=== PATIENT | male | born 1995 | race Caucasian/White ===

== ENCOUNTER 2019-11-27 16:48 | Emergency (ER) | payer OTHER ==
[2019-11-27] MEDS ORDERED: Morphine 4 MG/ML VIAL ONE (18:36)
[2019-11-27] MEDS ORDERED: Ondansetron PF 4 MG/2 ML Vial ONE ×2 (18:36→19:57)
[2019-11-27 18:51] LABS: #Basophils 0.1 thou/uL (0.0-0.2); #Eosinphils 0.1 thou/uL (0.0-0.7); #Lymphocytes 1.7 thou/uL (1.20-3.40); #Monocytes 0.5 thou/uL (0.11-0.59); %Basophils 1.3 % (0.0-1.0); %Eosinophils 1.2 % (0.0-10.0); %Lymphocytes 31.9 % (21.0-51.0); %Monocytes 8.6 % (0.0-10.0); %Neutrophils 57.1 % (42.0-75.0); Hemoglobin 16.1 g/dL (14.0-18.0); Mean Corpuscular Hemoglobin 34.5 pg (27.0-31.0); Mean Corpuscular Volume 96.1 fL (78.0-98.0); Mean Platelet Volume 7.2 fL (7.4-10.4); Platelet Count 215 thou/uL (130-400); RBC Distribution Width 11.6 % (11.5-14.5); Red Blood Cell (RBC) Count 4.65 mill/uL (4.70-6.10); White Blood Cell (WBC) Count 5.3 thou/uL (4.8-10.8)
[2019-11-27 19:06] LABS: ALT (SGPT) 19 U/L (8-55); AST (SGOT) 24 U/L (5-34); Alkaline Phosphatase 60 U/L (40-110); Anion Gap 15 mmol/L (10-20); BUN (Urea Nitrogen) 6 mg/dL (8.9-20.6); Calc. Creatinine Clearance 0 mL/min (70-130); Calcium 9.5 mg/dL (7.8-10.44); Carbon Dioxide 26 mmol/L (22-29); Chloride 100 mmol/L (98-107); Estimated GFR-MDRD Greater than 90; Globulin 2.6 g/dL (2.4-3.5); Glucose 91 mg/dL (70-105); Lipase 14 U/L (8-78); Potassium 3.8 mmol/L (3.5-5.1); Protein, Total 7.6 g/dL (6.0-8.3); Sodium 137 mmol/L (136-145)
[2019-11-27] MEDS ORDERED: methylPREDNISolone Sod Succ/PF 125 MG/2 ML VIAL ONE (19:57)
== END 2019-11-27 20:24 | disposition home or self-care (01) ==
LOC: ERS 16:48 → EDBD 16:48 → ERS 20:24
DX: K50.90 Crohn's disease, unspecified, without complications (principal); G47.00 Insomnia, unspecified; F32.9 Major depressive disorder, single episode, unspecified
CPT/HCPCS: 36415; 80053; 83690; 85025; 96374; 96375; J2270; J2405; J2930

== ENCOUNTER 2020-06-12 17:44 | Inpatient (IN) | payer OTHER ==
[~2020-06-12 17:44] MED LIST: Rocuronium Bromide 10 MG/ML (10ML VIAL) ONE
[2020-06-12] MEDS ORDERED: Fentanyl 100 MCG/2 ML VIAL ONE ×2 (17:52→18:43)
[2020-06-12] MEDS ORDERED: Boostrix 0.5 ML (Tdap) VIAL IM ONE (17:52)
[2020-06-12 18:00] LABS: Hemoglobin 15.2 g/dL (14.0-18.0); Mean Corpuscular HGB CONC 34.1 g/dL (32.0-36.0); Mean Corpuscular Hemoglobin 32.4 pg (27.0-31.0); Mean Corpuscular Volume 94.8 fL (78.0-98.0); Mean Platelet Volume 6.4 fL (7.4-10.4); Platelet Count 242 thou/uL (130-400); RBC Distribution Width 12.5 % (11.5-14.5); Red Blood Cell (RBC) Count 4.71 mill/uL (4.70-6.10); White Blood Cell (WBC) Count 5.5 thou/uL (4.8-10.8)
[2020-06-12 18:08] LABS: PTT 23.7 sec (22.9-36.1); Prothrombin Time 13.2 sec (12.0-14.7)
[2020-06-12 18:14] LABS: Lactic Acid 2.1 mmol/L (0.5-2.2)
[2020-06-12] MEDS ORDERED: Dextrose 50% Abboject 50 ML SYRINGE SLOW IVP PRN (18:14)
[2020-06-12] MEDS ORDERED: hydrALAZINE 20 MG/ML VIAL SLOW IVP PRN (18:14)
[2020-06-12] MEDS ORDERED: Dextrose 5% in Water 1,000 ML IV PRN (18:14)
[2020-06-12] MEDS ORDERED: fentaNYL Citrate/PF 2,000 MCG in Sodium Chloride 0.9% 60 ML IV PRN (18:17)
[2020-06-12 18:19] LABS: ALT (SGPT) 23 U/L (8-55); AST (SGOT) 32 U/L (5-34); Albumin 4.2 g/dL (3.5-5.0); Alkaline Phosphatase 73 U/L (40-110); Anion Gap 16 mmol/L (10-20); BUN (Urea Nitrogen) 8 mg/dL (8.9-20.6); Bilirubin, Total 0.3 mg/dL (0.2-1.2); Calc. Creatinine Clearance 0 mL/min (70-130); Calcium 8.1 mg/dL (7.8-10.44); Carbon Dioxide 24 mmol/L (22-29); Chloride 105 mmol/L (98-107); Globulin 2.7 g/dL (2.4-3.5); Glucose 127 mg/dL (70-105); Potassium 3.7 mmol/L (3.5-5.1); Protein, Total 6.9 g/dL (6.0-8.3); Sodium 141 mmol/L (136-145)
[2020-06-12 18:22] LABS: Band 2 % (5-11); Eosinophils 3 % (0-10); Lymphocytes 25 % (21-51); MDiff Complete? YES; Monocytes 6 % (0-10); Neutrophil 33 % (42-75); Platelet Morphology Comment Appears Adequate; RBC Morphology Normal; Reactive Lymphocytes 31 % (0-10)
[2020-06-12 18:27] LABS: Actual Bicarbonate (HCO3a) 21.7 mEq/L (22-28); Analyzer IN Cardio ER; Base Excess (BEa) -1.6 mEq/L (-2.0 to +3.0); CO2 Tension 32.7 mmHg (35.0-45.0); Calcium, Ionized (arterial) 1.07 mmol/L (1.12-1.30); Carboxyhemoglobin (COHb) 0.3 gm% (0.0-3.0); Hemoglobin (Hb) 14.6 g/dL (14.0-18.0); Potassium - ABG Lab 3.56 mmol/L (3.70-5.30); pH, Arterial 7.44 (7.35-7.45)
[2020-06-12 18:36] LABS: ALV-art Gradient 11.625 mmHg (0-20); Puncture Site RRA
[2020-06-12] MEDS ORDERED: Propofol 1,000 MG/100 ML VIAL IV ONE ×2 (18:52→22:56)
[2020-06-12 19:02] LABS: Magnesium 2.3 mg/dL (1.6-2.6); Phosphorus 2.4 mg/dL (2.3-4.7)
[2020-06-12] MEDS ORDERED: Midazolam HCl 5 mg/ml Vial ONE (19:03)
[2020-06-12 19:43] LABS: Bilirubin Negative (Negative); Blood, Urine Negative (Negative); Clarity Turbid (Clear); Glucose, Urine (Dipstick) Normal (Negative); Ketone, Urine Negative (Negative); Leukocyte Negative Leu/uL (Negative); Nitrite Negative (Negative); Protein, Urine (Dipstick) 10 mg/dL (Neg-Trace); Specific Gravity, Urine 1.017 (1.002-1.036); Urobilinogen Normal mg/dL (Less than 2); pH, Urine 7.5 (5.0-9.0)
[2020-06-12] MEDS ORDERED: Hydrocortisone 1% Cream 30 GM TUBE ONE (19:46)
[2020-06-12] MEDS ORDERED: Lidocaine 1% w/Epinephrine 1:100K 20 ML VIAL ONE (19:46)
[2020-06-12] MEDS ORDERED: Chlorhexidine Gluconate 15 ML UDCUP SSP ONE (19:46)
[2020-06-12 19:58] LABS: Amphetamine Not Detected (NotDetected); Barbiturates Screen Not Detected (NotDetected); Benzodiazepine Screen Not Detected (NotDetected); Cocaine Metabolite Screen Not Detected (NotDetected); Medtox Control Line Valid? VALID (VALID); Medtox Reader # READER 4; Methadone Not Detected (NotDetected); Methamphetamine Not Detected (NotDetected); Opiate Screen Not Detected (NotDetected); Oxycodone Screen Not Detected (NotDetected); Phencyclidine (PCP) Not Detected (NotDetected); THC/Cannabinoid Screen Detected (NotDetected); Tricyclic Screen Not Detected (NotDetected)
[2020-06-12] MEDS ORDERED: Rocuronium Bromide 10 MG/ML (10ML VIAL) ONE (20:05)
[2020-06-12] MEDS ORDERED: Vecuronium 10 MG VIAL ONE ×2 (20:05)
[2020-06-12] MEDS ORDERED: Dexamethasone 20 MG/5 ML VIAL ONE (20:05)
[2020-06-12] MEDS ORDERED: PHENYLEPHRINE-NS 100 MCG/ML 10 ML SYRINGE ONE (20:05)
[2020-06-12] MEDS ORDERED: levETIRAcetam in NS 500 MG in Premix Bag 1 BAG IVPB SCH (21:00)
[2020-06-12] MEDS ORDERED: Bacitracin Zinc Ointment 30 gm TUBE ONE (23:47)
[2020-06-13] MEDS: Sodium Chloride 0.9% 1,000 ML IV SCH ×4 (01:00→21:22)
[2020-06-13] MEDS ORDERED: Promethazine HCl 25 MG/ML VIAL IM PRN (01:10)
[2020-06-13] MEDS ORDERED: Ketorolac Tromethamine 30 MG/ML VIAL IVP PRN (01:10)
[2020-06-13] MEDS ORDERED: Promethazine HCl 25 MG/ML VIAL SLOW IVP PRN (01:10)
[2020-06-13] MEDS ORDERED: Ondansetron HCl/PF 4 MG/2 ML Vial IVP PRN (01:10)
[2020-06-13 01:12] LABS: Actual Bicarbonate (HCO3a) 23.1 mEq/L (22-28); Base Excess (BEa) -1.4 mEq/L (-2.0 to +3.0); CO2 Tension 38.3 mmHg (35.0-45.0); Calcium, Ionized (arterial) 1.03 mmol/L (1.12-1.30); Carboxyhemoglobin (COHb) 0.3 gm% (0.0-3.0); Hemoglobin (Hb) 13.5 g/dL (14.0-18.0); O2 Tension (PaO2), arterial 146.3 mmHg (80.0-100.0); Potassium - ABG Lab 4.15 mmol/L (3.70-5.30)
[2020-06-13 01:30] LABS: Puncture Site RRA
[2020-06-13 01:31] LABS: ALV-art Gradient 91.025 mmHg (0-20)
[2020-06-13] MEDS ORDERED: levETIRAcetam in NS 500 MG in Premix Bag 1 BAG IVPB SCH (01:45)
[2020-06-13] MEDS: Famotidine/PF 20 mg/2ml Vial SLOW IVP SCH ×3 (02:11→21:05)
[2020-06-13] MEDS: Clindamycin/D5W 900 MG in Premix Bag 1 BAG IVPB SCH ×3 (02:18→17:08)
[2020-06-13 03:40] LABS: #Lymphocytes 0.6 thou/uL (1.20-3.40); #Monocytes 0.2 thou/uL (0.11-0.59); #Neutrophils 13.6 thou/uL (1.40-6.50); %Basophils 0.2 % (0.0-1.0); %Eosinophils 0.1 % (0.0-10.0); %Lymphocytes 4.2 % (21.0-51.0); %Monocytes 1.3 % (0.0-10.0); %Neutrophils 94.1 % (42.0-75.0); Hemoglobin 13.1 g/dL (14.0-18.0); Mean Corpuscular HGB CONC 33.3 g/dL (32.0-36.0); Mean Corpuscular Hemoglobin 31.7 pg (27.0-31.0); Mean Platelet Volume 6.7 fL (7.4-10.4); Platelet Count 205 thou/uL (130-400); RBC Distribution Width 12.6 % (11.5-14.5); Red Blood Cell (RBC) Count 4.13 mill/uL (4.70-6.10); White Blood Cell (WBC) Count 14.5 thou/uL (4.8-10.8)
[2020-06-13 04:13] LABS: ALT (SGPT) 19 U/L (8-55); AST (SGOT) 27 U/L (5-34); Albumin 3.7 g/dL (3.5-5.0); Alkaline Phosphatase 62 U/L (40-110); Anion Gap 15 mmol/L (10-20); BUN (Urea Nitrogen) 7 mg/dL (8.9-20.6); Bilirubin, Direct 0.1 mg/dL (0.1-0.3); Bilirubin, Total 0.3 mg/dL (0.2-1.2); Calc. Creatinine Clearance 153 mL/min (70-130); Calcium 7.7 mg/dL (7.8-10.44); Carbon Dioxide 21 mmol/L (22-29); Chloride 107 mmol/L (98-107); Glucose 144 mg/dL (70-105); Magnesium 1.9 mg/dL (1.6-2.6); Potassium 4.2 mmol/L (3.5-5.1); Protein, Total 5.9 g/dL (6.0-8.3); Sodium 139 mmol/L (136-145)
[2020-06-13] MEDS: Propofol 1,000 MG/100 ML VIAL IV PRN ×3 (05:04→21:05)
[2020-06-13] MEDS ORDERED: Hydrocortisone Sod Succ/PF 100 mg/2 ml Vial IVP SCH ×2 (05:15→14:00)
[2020-06-13] MEDS ORDERED: Potassium Phosphate 15 MMOL in Sodium Chloride 0.9% 250 ML 250 ML IVPB SCH (07:15)
[2020-06-13] MEDS: Acetaminophen 650 MG/20.3 ML UDCUP PER TUBE SCH ×3 (07:36→18:10)
[2020-06-13] MEDS ORDERED: Fentanyl CADD 100 ML ONE ×2 (07:53→17:06)
[2020-06-13] MEDS: Bacitracin 1 PK TOP SCH ×2 (08:39→21:05)
[2020-06-13] MEDS ORDERED: TETANUS AND DIPHTHERIA TOX/PF 0.5 ML DISP.SYRIN IM ONE (09:00)
[2020-06-13] MEDS: Dexamethasone 4 mg/ml Vial SLOW IVP SCH ×3 (12:02→21:05)
[2020-06-13] MEDS: Ondansetron PF 4 MG/2 ML Vial IVP PRN (12:49)
[2020-06-13] MEDS: levETIRAcetam in NS 500 MG in Premix Bag 1 BAG IVPB SCH (14:30)
[2020-06-13] MEDS ORDERED: Sodium Phosphate 30 MMOL in Sodium Chloride 0.9% 250 ML 250 ML IVPB SCH (20:30)
[2020-06-14] MEDS: Acetaminophen 650 MG/20.3 ML UDCUP PER TUBE SCH ×4 (00:56→18:22)
[2020-06-14] MEDS: Dexamethasone 4 mg/ml Vial SLOW IVP SCH ×6 (00:57→21:23)
[2020-06-14] MEDS: levETIRAcetam in NS 500 MG in Premix Bag 1 BAG IVPB SCH ×2 (01:00→14:24)
[2020-06-14] MEDS: Propofol 1,000 MG/100 ML VIAL IV PRN ×2 (01:16→06:43)
[2020-06-14] MEDS: Clindamycin/D5W 900 MG in Premix Bag 1 BAG IVPB SCH ×3 (01:16→16:43)
[2020-06-14] MEDS ORDERED: Midazolam HCl 2 mg/2 ml Vial ONE (02:28)
[2020-06-14] MEDS ORDERED: Midazolam HCl 2 mg/2 ml Vial SLOW IVP PRN (02:56)
[2020-06-14] MEDS ORDERED: Midazolam HCl 2 mg/2 ml Vial SLOW IVP SCH ×2 (03:00→09:30)
[2020-06-14] MEDS ORDERED: Fentanyl CADD 100 ML ONE (04:07)
[2020-06-14 07:18] LABS: Actual Bicarbonate (HCO3a) 27.1 mEq/L (22-28); Base Excess (BEa) 1.5 mEq/L (-2.0 to +3.0); CO2 Tension 46.9 mmHg (35.0-45.0); Calcium, Ionized (arterial) 1.07 mmol/L (1.12-1.30); Carboxyhemoglobin (COHb) 0.3 gm% (0.0-3.0); Hemoglobin (Hb) 11.6 g/dL (14.0-18.0); Potassium - ABG Lab 4.08 mmol/L (3.70-5.30); pH, Arterial 7.38 (7.35-7.45)
[2020-06-14 07:21] LABS: O2 Tension (PaO2), arterial 59.8 mmHg (80.0-100.0); Puncture Site RRA
[2020-06-14 07:22] LABS: ALV-art Gradient 95.475 mmHg (0-20)
[2020-06-14] MEDS: Famotidine/PF 20 mg/2ml Vial SLOW IVP SCH ×2 (08:12→21:23)
[2020-06-14] MEDS: Bacitracin 1 PK TOP SCH ×2 (08:12→21:22)
[2020-06-14] MEDS: Sodium Chloride 0.9% 1,000 ML IV SCH ×2 (08:14→14:24)
[2020-06-14] MEDS ORDERED: Vecuronium 10 MG VIAL IV SCH (09:30)
[2020-06-14] MEDS: Ketorolac Tromethamine 30 MG/ML VIAL IVP SCH (16:43)
[2020-06-15] MEDS: Sodium Chloride 0.9% 1,000 ML IV SCH (00:14)
[2020-06-15] MEDS: Ketorolac Tromethamine 30 MG/ML VIAL IVP SCH ×5 (00:14→18:23)
[2020-06-15] MEDS: Acetaminophen 650 MG/20.3 ML UDCUP PER TUBE SCH ×2 (00:14→06:16)
[2020-06-15] MEDS: levETIRAcetam in NS 500 MG in Premix Bag 1 BAG IVPB SCH ×2 (02:34→13:23)
[2020-06-15] MEDS: Clindamycin/D5W 900 MG in Premix Bag 1 BAG IVPB SCH ×3 (02:34→18:24)
[2020-06-15] MEDS: Dexamethasone 4 mg/ml Vial SLOW IVP SCH ×3 (02:34→08:30)
[2020-06-15 03:59] LABS: #Lymphocytes 0.7 thou/uL (1.20-3.40); #Monocytes 0.4 thou/uL (0.11-0.59); #Neutrophils 8.7 thou/uL (1.40-6.50); %Basophils 0.2 % (0.0-1.0); %Eosinophils 0.1 % (0.0-10.0); %Lymphocytes 7.2 % (21.0-51.0); %Monocytes 3.6 % (0.0-10.0); %Neutrophils 88.9 % (42.0-75.0); Hemoglobin 10.5 g/dL (14.0-18.0); Mean Corpuscular HGB CONC 35.2 g/dL (32.0-36.0); Mean Corpuscular Hemoglobin 33.5 pg (27.0-31.0); Mean Corpuscular Volume 95.2 fL (78.0-98.0); Mean Platelet Volume 7.5 fL (7.4-10.4); Platelet Count 161 thou/uL (130-400); RBC Distribution Width 12.1 % (11.5-14.5); Red Blood Cell (RBC) Count 3.13 mill/uL (4.70-6.10); White Blood Cell (WBC) Count 9.8 thou/uL (4.8-10.8)
[2020-06-15 04:20] LABS: Anion Gap 10 mmol/L (10-20); BUN (Urea Nitrogen) 9 mg/dL (8.9-20.6); Calc. Creatinine Clearance 185 mL/min (70-130); Calcium 7.9 mg/dL (7.8-10.44); Carbon Dioxide 25 mmol/L (22-29); Chloride 107 mmol/L (98-107); Glucose 129 mg/dL (70-105); Potassium 3.7 mmol/L (3.5-5.1); Sodium 138 mmol/L (136-145)
[2020-06-15] MEDS: Bacitracin 1 PK TOP SCH ×2 (08:30→20:52)
[2020-06-15] MEDS: Famotidine/PF 20 mg/2ml Vial SLOW IVP SCH ×2 (08:30→20:52)
[2020-06-15] MEDS ORDERED: Dicyclomine 20 MG TAB PO PRN (11:40)
[2020-06-15] MEDS: lamoTRIgine 25 MG TAB PO SCH ×3 (12:27→20:52)
[2020-06-15] MEDS: traMADol HCl 50 MG TAB PO SCH ×2 (12:27→18:21)
[2020-06-15] MEDS ORDERED: Dexamethasone 4 mg/ml Vial SLOW IVP SCH (13:00)
[2020-06-15 13:26] VITALS: BMI 27.2
[2020-06-15] MEDS: Acetaminophen W/ Codeine 5 ML UDCUP PO PRN (20:52)
[2020-06-16] MEDS: traMADol HCl 50 MG TAB PO SCH ×4 (01:05→18:18)
[2020-06-16] MEDS: levETIRAcetam in NS 500 MG in Premix Bag 1 BAG IVPB SCH ×2 (01:05→13:39)
[2020-06-16] MEDS: Clindamycin/D5W 900 MG in Premix Bag 1 BAG IVPB SCH ×3 (01:05→18:21)
[2020-06-16] MEDS: Ketorolac Tromethamine 30 MG/ML VIAL IVP SCH ×4 (01:06→18:20)
[2020-06-16] MEDS: Enoxaparin Sodium 40 MG/0.4 ML SYRINGE SC SCH (08:47)
[2020-06-16] MEDS: Famotidine/PF 20 mg/2ml Vial SLOW IVP SCH ×2 (08:47→21:45)
[2020-06-16] MEDS: lamoTRIgine 25 MG TAB PO SCH ×4 (08:47→21:45)
[2020-06-16] MEDS: Bacitracin 1 PK TOP SCH ×2 (08:51→22:13)
[2020-06-16] MEDS ORDERED: Albuterol Sulfate 2.5 mg/3 ml Neb IPPB PRN (11:54)
[2020-06-16] MEDS ORDERED: Polyethylene Glycol 3350 17 GM Packet PER TUBE SCH (12:00)
[2020-06-16] MEDS: Acetaminophen W/ Codeine 5 ML UDCUP PO PRN ×2 (15:49→21:59)
[2020-06-16] MEDS: SYSTANE GEL OPHTH DROPS 10 ML EA EYE PRN (18:16)
[2020-06-16] MEDS: Lidocaine-Prilocaine 2.5% Cream 5 GM TUBE TOP PRN (21:44)
[2020-06-16] MEDS: Senokot S 8.6-50 MG TAB PO SCH (21:45)
[2020-06-16] MEDS: Chlorhexidine Gluconate 15 ML UDCUP SSP SCH (21:45)
[2020-06-17] MEDS: Ketorolac Tromethamine 30 MG/ML VIAL IVP SCH ×5 (00:03→23:15)
[2020-06-17] MEDS: traMADol HCl 50 MG TAB PO SCH ×5 (00:03→23:15)
[2020-06-17] MEDS: levETIRAcetam in NS 500 MG in Premix Bag 1 BAG IVPB SCH ×2 (02:12→12:48)
[2020-06-17] MEDS: Clindamycin/D5W 900 MG in Premix Bag 1 BAG IVPB SCH ×3 (02:15→17:41)
[2020-06-17] MEDS: Lidocaine-Prilocaine 2.5% Cream 5 GM TUBE TOP PRN ×3 (04:47→21:05)
[2020-06-17] MEDS: Acetaminophen W/ Codeine 5 ML UDCUP PO PRN ×3 (04:48→23:15)
[2020-06-17] MEDS: Senokot S 8.6-50 MG TAB PO SCH ×2 (09:07→21:03)
[2020-06-17] MEDS: Chlorhexidine Gluconate 15 ML UDCUP SSP SCH ×2 (09:07→21:00)
[2020-06-17] MEDS: lamoTRIgine 25 MG TAB PO SCH ×4 (09:08→20:59)
[2020-06-17] MEDS: Bacitracin 1 PK TOP SCH ×2 (09:08→21:00)
[2020-06-17] MEDS: Polyethylene Glycol 3350 17 GM Packet PER TUBE SCH (09:09)
[2020-06-17] MEDS: Enoxaparin Sodium 40 MG/0.4 ML SYRINGE SC SCH (09:09)
[2020-06-17] MEDS: Famotidine/PF 20 mg/2ml Vial SLOW IVP SCH ×2 (09:10→20:59)
[2020-06-18] MEDS: levETIRAcetam in NS 500 MG in Premix Bag 1 BAG IVPB SCH ×2 (01:59→14:31)
[2020-06-18] MEDS: Clindamycin/D5W 900 MG in Premix Bag 1 BAG IVPB SCH ×3 (01:59→17:56)
[2020-06-18] MEDS: Ketorolac Tromethamine 30 MG/ML VIAL IVP SCH ×3 (04:54→17:56)
[2020-06-18] MEDS: traMADol HCl 50 MG TAB PO SCH ×3 (04:54→17:57)
[2020-06-18 05:33] LABS: #Eosinphils 0.3 thou/uL (0.0-0.7); #Lymphocytes 1.5 thou/uL (1.20-3.40); #Monocytes 0.5 thou/uL (0.11-0.59); #Neutrophils 2.3 thou/uL (1.40-6.50); %Basophils 0.7 % (0.0-1.0); %Eosinophils 7.2 % (0.0-10.0); %Lymphocytes 32.1 % (21.0-51.0); %Monocytes 10.3 % (0.0-10.0); %Neutrophils 49.7 % (42.0-75.0); Hemoglobin 11.1 g/dL (14.0-18.0); Mean Corpuscular HGB CONC 33.4 g/dL (32.0-36.0); Mean Corpuscular Hemoglobin 31.9 pg (27.0-31.0); Mean Corpuscular Volume 95.5 fL (78.0-98.0); Platelet Count 201 thou/uL (130-400); RBC Distribution Width 12.3 % (11.5-14.5); White Blood Cell (WBC) Count 4.7 thou/uL (4.8-10.8)
[2020-06-18 05:55] LABS: Anion Gap 10 mmol/L (10-20); BUN (Urea Nitrogen) 17 mg/dL (8.9-20.6); Calc. Creatinine Clearance 185 mL/min (70-130); Calcium 8.3 mg/dL (7.8-10.44); Carbon Dioxide 27 mmol/L (22-29); Chloride 105 mmol/L (98-107); Glucose 103 mg/dL (70-105); Magnesium 2.4 mg/dL (1.6-2.6); Phosphorus 4.2 mg/dL (2.3-4.7); Potassium 3.3 mmol/L (3.5-5.1); Sodium 139 mmol/L (136-145)
[2020-06-18] MEDS: Acetaminophen W/ Codeine 5 ML UDCUP PO PRN ×4 (08:29→21:09)
[2020-06-18] MEDS: Lidocaine-Prilocaine 2.5% Cream 5 GM TUBE TOP PRN ×2 (08:30→18:01)
[2020-06-18] MEDS: Famotidine/PF 20 mg/2ml Vial SLOW IVP SCH (08:30)
[2020-06-18] MEDS: lamoTRIgine 25 MG TAB PO SCH ×4 (08:30→21:08)
[2020-06-18] MEDS: Chlorhexidine Gluconate 15 ML UDCUP SSP SCH ×2 (08:30→21:08)
[2020-06-18] MEDS: Bacitracin 1 PK TOP SCH ×2 (08:30→21:08)
[2020-06-18] MEDS: Enoxaparin Sodium 40 MG/0.4 ML SYRINGE SC SCH ×2 (08:32→08:34)
[2020-06-18] MEDS: Senokot S 8.6-50 MG TAB PO SCH ×2 (08:40→21:09)
[2020-06-18] MEDS: Polyethylene Glycol 3350 17 GM Packet PER TUBE SCH (08:40)
[2020-06-18] MEDS: Dexamethasone 4 mg/ml Vial SLOW IVP SCH ×2 (12:07→21:08)
[2020-06-18] MEDS ORDERED: Sodium Chloride 0.9% (PF) 10 ML VIAL FS PRN (12:15)
[2020-06-18] MEDS: Pantoprazole 40 MG VIAL IVP SCH (21:08)
[2020-06-18] MEDS: SYSTANE GEL OPHTH DROPS 10 ML EA EYE PRN (21:10)
[2020-06-19] MEDS: Ketorolac Tromethamine 30 MG/ML VIAL IVP SCH ×3 (00:07→11:57)
[2020-06-19] MEDS: traMADol HCl 50 MG TAB PO SCH ×4 (00:08→17:09)
[2020-06-19] MEDS: levETIRAcetam in NS 500 MG in Premix Bag 1 BAG IVPB SCH ×2 (02:24→13:50)
[2020-06-19] MEDS: Clindamycin/D5W 900 MG in Premix Bag 1 BAG IVPB SCH ×3 (02:27→17:10)
[2020-06-19] MEDS: Dexamethasone 4 mg/ml Vial SLOW IVP SCH ×3 (03:48→22:59)
[2020-06-19] MEDS: Acetaminophen W/ Codeine 5 ML UDCUP PO PRN ×4 (03:53→22:54)
[2020-06-19] MEDS ORDERED: Pantoprazole 40 MG VIAL IVP SCH (09:00)
[2020-06-19] MEDS: Chlorhexidine Gluconate 15 ML UDCUP SSP SCH ×2 (09:21→22:55)
[2020-06-19] MEDS: lamoTRIgine 25 MG TAB PO SCH ×4 (09:22→22:56)
[2020-06-19] MEDS: Saccharomyces boulardii 250 MG CAP PO SCH (09:22)
[2020-06-19] MEDS: Bacitracin 1 PK TOP SCH ×2 (09:23→22:55)
[2020-06-19] MEDS: Pantoprazole 40 MG VIAL IVP SCH ×2 (09:23→22:59)
[2020-06-19] MEDS: Enoxaparin Sodium 40 MG/0.4 ML SYRINGE SC SCH (09:23)
[2020-06-19] MEDS: Polyethylene Glycol 3350 17 GM Packet PER TUBE SCH (09:24)
[2020-06-19] MEDS: Senokot S 8.6-50 MG TAB PO SCH ×2 (09:24→21:35)
[2020-06-19] MEDS: Lidocaine-Prilocaine 2.5% Cream 5 GM TUBE TOP PRN ×2 (09:48→21:11)
[2020-06-19] MEDS ORDERED: Pseudoephedrine HCl 30 MG TAB PO PRN (10:45)
[2020-06-19] MEDS ORDERED: Sodium Chloride 0.65% Nasal 44 ML BOT EA NARE PRN (16:22)
[2020-06-19] MEDS: Ondansetron PF 4 MG/2 ML Vial IVP PRN (18:06)
[2020-06-19] MEDS: Oxymetazoline HCl 0.05% (30 ML BOT) NS SCH (22:56)
[2020-06-20] MEDS: traMADol HCl 50 MG TAB PO SCH ×4 (00:01→17:17)
[2020-06-20] MEDS: levETIRAcetam in NS 500 MG in Premix Bag 1 BAG IVPB SCH ×2 (02:42→14:12)
[2020-06-20] MEDS: Clindamycin/D5W 900 MG in Premix Bag 1 BAG IVPB SCH ×3 (02:45→17:16)
[2020-06-20] MEDS: Dexamethasone 4 mg/ml Vial SLOW IVP SCH ×2 (05:58→11:01)
[2020-06-20] MEDS: Acetaminophen W/ Codeine 5 ML UDCUP PO PRN ×3 (07:25→22:43)
[2020-06-20] MEDS: Chlorhexidine Gluconate 15 ML UDCUP SSP SCH ×2 (09:20→20:37)
[2020-06-20] MEDS: Oxymetazoline HCl 0.05% (30 ML BOT) NS SCH ×2 (09:20→20:37)
[2020-06-20] MEDS: Bacitracin 1 PK TOP SCH ×2 (09:20→20:43)
[2020-06-20] MEDS: lamoTRIgine 25 MG TAB PO SCH ×4 (09:21→20:37)
[2020-06-20] MEDS: Saccharomyces boulardii 250 MG CAP PO SCH (09:21)
[2020-06-20] MEDS: Polyethylene Glycol 3350 17 GM Packet PER TUBE SCH (09:21)
[2020-06-20] MEDS: Senokot S 8.6-50 MG TAB PO SCH ×2 (09:21→22:42)
[2020-06-20] MEDS: Pantoprazole 40 MG VIAL IVP SCH ×2 (11:01→22:42)
[2020-06-20] MEDS: Lidocaine-Prilocaine 2.5% Cream 5 GM TUBE TOP PRN ×2 (12:36→22:43)
[2020-06-21] MEDS: traMADol HCl 50 MG TAB PO SCH ×5 (00:09→23:08)
[2020-06-21] MEDS: Clindamycin/D5W 900 MG in Premix Bag 1 BAG IVPB SCH ×3 (03:01→17:11)
[2020-06-21] MEDS: levETIRAcetam in NS 500 MG in Premix Bag 1 BAG IVPB SCH ×2 (03:01→14:14)
[2020-06-21] MEDS: Acetaminophen W/ Codeine 5 ML UDCUP PO PRN ×2 (05:09→17:11)
[2020-06-21] MEDS: Lidocaine-Prilocaine 2.5% Cream 5 GM TUBE TOP PRN ×2 (09:27→20:05)
[2020-06-21] MEDS: Chlorhexidine Gluconate 15 ML UDCUP SSP SCH ×2 (09:28→20:01)
[2020-06-21] MEDS: Oxymetazoline HCl 0.05% (30 ML BOT) NS SCH ×2 (09:28→20:02)
[2020-06-21] MEDS: Saccharomyces boulardii 250 MG CAP PO SCH (09:29)
[2020-06-21] MEDS: Enoxaparin Sodium 40 MG/0.4 ML SYRINGE SC SCH (09:29)
[2020-06-21] MEDS: Polyethylene Glycol 3350 17 GM Packet PER TUBE SCH (09:29)
[2020-06-21] MEDS: Senokot S 8.6-50 MG TAB PO SCH ×2 (09:29→20:04)
[2020-06-21] MEDS: Bacitracin 1 PK TOP SCH ×2 (09:30→20:01)
[2020-06-21] MEDS: Pantoprazole 40 MG VIAL IVP SCH (09:44)
[2020-06-21] MEDS: lamoTRIgine 25 MG TAB PO SCH ×4 (14:14→20:02)
[2020-06-21] MEDS: Pseudoephedrine HCl 30 MG TAB PO PRN (17:53)
[2020-06-22] MEDS: levETIRAcetam in NS 500 MG in Premix Bag 1 BAG IVPB SCH ×2 (03:48→14:04)
[2020-06-22] MEDS: Clindamycin/D5W 900 MG in Premix Bag 1 BAG IVPB SCH ×3 (03:48→18:02)
[2020-06-22] MEDS: traMADol HCl 50 MG TAB PO SCH ×4 (05:57→23:11)
[2020-06-22] MEDS: Bacitracin 1 PK TOP SCH ×2 (08:18→20:02)
[2020-06-22] MEDS: Chlorhexidine Gluconate 15 ML UDCUP SSP SCH ×2 (08:18→20:02)
[2020-06-22] MEDS: Senokot S 8.6-50 MG TAB PO SCH ×2 (08:18→20:03)
[2020-06-22] MEDS: Enoxaparin Sodium 40 MG/0.4 ML SYRINGE SC SCH (08:18)
[2020-06-22] MEDS: Pantoprazole 40 MG VIAL IVP SCH (08:18)
[2020-06-22] MEDS: Polyethylene Glycol 3350 17 GM Packet PER TUBE SCH (08:19)
[2020-06-22] MEDS: Oxymetazoline HCl 0.05% (30 ML BOT) NS SCH ×2 (08:19→20:03)
[2020-06-22] MEDS: lamoTRIgine 25 MG TAB PO SCH ×2 (08:19→12:17)
[2020-06-22] MEDS: Saccharomyces boulardii 250 MG CAP PO SCH (08:19)
[2020-06-22] MEDS: Acetaminophen W/ Codeine 5 ML UDCUP PO PRN ×3 (08:24→20:09)
[2020-06-22] MEDS: Pseudoephedrine HCl 30 MG TAB PO PRN ×3 (09:28→23:12)
[2020-06-22] MEDS: Lidocaine-Prilocaine 2.5% Cream 5 GM TUBE TOP PRN ×2 (11:22→23:13)
[2020-06-23] MEDS: levETIRAcetam in NS 500 MG in Premix Bag 1 BAG IVPB SCH ×2 (02:57→14:00)
[2020-06-23] MEDS: Clindamycin/D5W 900 MG in Premix Bag 1 BAG IVPB SCH ×3 (02:57→18:00)
[2020-06-23] MEDS: traMADol HCl 50 MG TAB PO SCH ×4 (05:51→23:34)
[2020-06-23] MEDS: Chlorhexidine Gluconate 15 ML UDCUP SSP SCH ×2 (08:37→20:49)
[2020-06-23] MEDS: Saccharomyces boulardii 250 MG CAP PO SCH (08:38)
[2020-06-23] MEDS: Enoxaparin Sodium 40 MG/0.4 ML SYRINGE SC SCH (08:38)
[2020-06-23] MEDS: Senokot S 8.6-50 MG TAB PO SCH ×2 (08:38→20:50)
[2020-06-23] MEDS: Bacitracin 1 PK TOP SCH (08:39)
[2020-06-23] MEDS: Polyethylene Glycol 3350 17 GM Packet PER TUBE SCH (08:39)
[2020-06-23] MEDS: Pantoprazole 40 MG VIAL IVP SCH (08:39)
[2020-06-23] MEDS: Acetaminophen W/ Codeine 5 ML UDCUP PO PRN ×3 (08:40→20:59)
[2020-06-23] MEDS: Pseudoephedrine HCl 30 MG TAB PO PRN ×3 (08:57→22:04)
[2020-06-23] MEDS: Lidocaine-Prilocaine 2.5% Cream 5 GM TUBE TOP PRN ×2 (10:54→23:38)
[2020-06-23] MEDS: Ibuprofen 100 MG/5 ML UDCUP PO SCH ×2 (18:11→22:02)
[2020-06-23] MEDS ORDERED: Hydrocortisone Sod Succ/PF 100 mg/2 ml Vial IVP SCH (20:00)
[2020-06-23] MEDS: Oxymetazoline HCl 0.05% (30 ML BOT) NS SCH (20:49)
[2020-06-23] MEDS ORDERED: methylPREDNISolone Sod Succ 40 MG VIAL IVP SCH (22:00)
[2020-06-24] MEDS: Clindamycin/D5W 900 MG in Premix Bag 1 BAG IVPB SCH ×3 (01:19→18:12)
[2020-06-24] MEDS: levETIRAcetam in NS 500 MG in Premix Bag 1 BAG IVPB SCH ×2 (01:54→14:57)
[2020-06-24] MEDS: traMADol HCl 50 MG TAB PO SCH ×4 (06:17→23:16)
[2020-06-24] MEDS: Ibuprofen 100 MG/5 ML UDCUP PO SCH ×4 (06:17→23:23)
[2020-06-24] MEDS: Pseudoephedrine HCl 30 MG TAB PO PRN ×2 (09:23→19:25)
[2020-06-24] MEDS: Polyethylene Glycol 3350 17 GM Packet PER TUBE SCH (09:24)
[2020-06-24] MEDS: Enoxaparin Sodium 40 MG/0.4 ML SYRINGE SC SCH (09:24)
[2020-06-24] MEDS: Senokot S 8.6-50 MG TAB PO SCH ×2 (09:24→20:47)
[2020-06-24] MEDS: Saccharomyces boulardii 250 MG CAP PO SCH (09:24)
[2020-06-24] MEDS: Pantoprazole 40 MG VIAL IVP SCH (09:24)
[2020-06-24] MEDS: Chlorhexidine Gluconate 15 ML UDCUP SSP SCH ×2 (09:32→20:45)
[2020-06-24] MEDS: Oxymetazoline HCl 0.05% (30 ML BOT) NS SCH ×2 (09:34→20:47)
[2020-06-24] MEDS: SYSTANE GEL OPHTH DROPS 10 ML EA EYE PRN (09:36)
[2020-06-24] MEDS: Lidocaine-Prilocaine 2.5% Cream 5 GM TUBE TOP PRN ×2 (12:12→23:20)
[2020-06-24] MEDS: Acetaminophen W/ Codeine 5 ML UDCUP PO PRN (20:55)
[2020-06-25] MEDS: levETIRAcetam in NS 500 MG in Premix Bag 1 BAG IVPB SCH ×2 (01:26→14:20)
[2020-06-25] MEDS: Clindamycin/D5W 900 MG in Premix Bag 1 BAG IVPB SCH ×3 (02:05→17:34)
[2020-06-25] MEDS: traMADol HCl 50 MG TAB PO SCH ×6 (05:57→23:47)
[2020-06-25] MEDS: Ibuprofen 100 MG/5 ML UDCUP PO SCH ×4 (05:59→23:41)
[2020-06-25] MEDS: Acetaminophen W/ Codeine 5 ML UDCUP PO PRN ×3 (08:46→23:42)
[2020-06-25] MEDS: Chlorhexidine Gluconate 15 ML UDCUP SSP SCH ×2 (08:48→20:05)
[2020-06-25] MEDS: Oxymetazoline HCl 0.05% (30 ML BOT) NS SCH ×2 (08:48→20:04)
[2020-06-25] MEDS: Enoxaparin Sodium 40 MG/0.4 ML SYRINGE SC SCH (08:48)
[2020-06-25] MEDS: Pantoprazole 40 MG VIAL IVP SCH (08:48)
[2020-06-25] MEDS: Polyethylene Glycol 3350 17 GM Packet PER TUBE SCH (08:59)
[2020-06-25] MEDS: Senokot S 8.6-50 MG TAB PO SCH ×2 (08:59→20:05)
[2020-06-25] MEDS: Saccharomyces boulardii 250 MG CAP PO SCH (08:59)
[2020-06-25] MEDS: Pseudoephedrine HCl 30 MG TAB PO PRN ×2 (11:43→20:09)
[2020-06-25] MEDS: Lidocaine-Prilocaine 2.5% Cream 5 GM TUBE TOP PRN (12:49)
[2020-06-26] MEDS: levETIRAcetam in NS 500 MG in Premix Bag 1 BAG IVPB SCH ×2 (02:12→16:15)
[2020-06-26] MEDS: Clindamycin/D5W 900 MG in Premix Bag 1 BAG IVPB SCH ×2 (02:12→09:04)
[2020-06-26] MEDS: traMADol HCl 50 MG TAB PO SCH ×2 (05:02→11:32)
[2020-06-26] MEDS: Ibuprofen 100 MG/5 ML UDCUP PO SCH ×2 (05:03→11:32)
[2020-06-26] MEDS: Oxymetazoline HCl 0.05% (30 ML BOT) NS SCH (08:55)
[2020-06-26] MEDS: Enoxaparin Sodium 40 MG/0.4 ML SYRINGE SC SCH (08:55)
[2020-06-26] MEDS: Chlorhexidine Gluconate 15 ML UDCUP SSP SCH (08:55)
[2020-06-26] MEDS: Saccharomyces boulardii 250 MG CAP PO SCH (08:55)
[2020-06-26] MEDS: Pantoprazole 40 MG VIAL IVP SCH (08:55)
[2020-06-26] MEDS: Senokot S 8.6-50 MG TAB PO SCH (08:59)
[2020-06-26] MEDS: Polyethylene Glycol 3350 17 GM Packet PER TUBE SCH (08:59)
[2020-06-26] MEDS: Pseudoephedrine HCl 30 MG TAB PO PRN ×2 (09:30→15:31)
[2020-06-26] MEDS: Lidocaine-Prilocaine 2.5% Cream 5 GM TUBE TOP PRN (09:30)
[2020-06-26] MEDS: Acetaminophen W/ Codeine 5 ML UDCUP PO PRN (15:31)
[2020-06-26 16:19] VITALS: BP 118/64; TEMP 98.3
== END 2020-06-26 17:39 | disposition home or self-care (01) | DRG 143 ==
LOC: ERS 17:44 → EEVIPCON 17:44 → SDC/OP 20:09 → CCU 21:00 → SURG A 06-15 14:25
PROVIDERS: ADMIT Surgery; ATTEND Surgery
PROC: 0CQ40ZZ Repair Buccal Mucosa, Open Approach (ICD-10-PCS; principal; 2020-06-12)
PROC: 0JU137Z Supplement of Face Subcutaneous Tissue and Fascia with Autologous Tissue Substitute, Percutaneous Approach (ICD-10-PCS; 2020-06-12)
PROC: 0WQ30ZZ Repair Oral Cavity and Throat, Open Approach (ICD-10-PCS; 2020-06-12)
PROC: 0BH17EZ Insertion of Endotracheal Airway into Trachea, Via Natural or Artificial Opening (ICD-10-PCS; 2020-06-12)
PROC: 0NSRXZZ Reposition Maxilla, External Approach (ICD-10-PCS; 2020-06-12)
PROC: 5A1945Z Respiratory Ventilation, 24-96 Consecutive Hours (ICD-10-PCS; 2020-06-12)
PROC: 0DH63UZ Insertion of Feeding Device into Stomach, Percutaneous Approach (ICD-10-PCS; 2020-06-14)
PROC: 3E0G76Z Introduction of Nutritional Substance into Upper GI, Via Natural or Artificial Opening (ICD-10-PCS; 2020-06-14)
DX: S02.40EB Zygomatic fracture, right side, initial encounter for open fracture (principal); J96.90 Respiratory failure, unspecified, unspecified whether with hypoxia or hypercapnia; S02.31XB Fracture of orbital floor, right side, initial encounter for open fracture; S02.40CB Maxillary fracture, right side, initial encounter for open fracture; F20.9 Schizophrenia, unspecified; F32.9 Major depressive disorder, single episode, unspecified; J39.2 Other diseases of pharynx; H35.60 Retinal hemorrhage, unspecified eye; D64.9 Anemia, unspecified
CPT/HCPCS: 31500; 36415; 36416; 36600; 51702; 70450; 70486; 71045; 74018; 80048; 80053; 80076; 80306; 81003; 82533; 82805; 83605; 83735; 84100; 84146; 85025; 85610; 85730; 86850; 86900; 86901; 90471; 90715; 94002; 94003; 94640; 96365; 96367; 96375; 96376; 99292; C9113; G0390; J0690; J1100; J1650; J1720; J1885; J1953; J2250; J2405; J2704; J3010; J3490; J7050; J7620; S0028